=== PATIENT | female | born 2000 | race Caucasian/White ===

== ENCOUNTER 2024-02-11 18:20 | Emergency (ER) | payer SELFPAY ==
--- NOTE | 2024-02-11 20:09 | RAD REPORT ---
EXAM DESCRIPTION: RAD - Foot Left 3 View - 02/11/2024 7:50 pm CLINICAL HISTORY: toe injury COMPARISON: No comparisons FINDINGS/IMPRESSION: Transversely oriented fracture with slight lateral displacement at the third pr oximal phalangeal at the mid diaphysis. No intra-articular extension. No other fractures identified.
[2024-02-11] MEDS ORDERED: IBUPROFEN 400 MG TAB ONE (20:23)
[2024-02-11] MEDS ORDERED: HYDROCODONE/APAP 5/325 MG TAB ONE (20:23)
--- NOTE | 2024-02-11 20:27 | EDPHYS ---
Physician Documentation [facility] Name: Ej Moreno Age: 23 yrs Sex: Female : 2000 Arrival Date: 02/11/2024 Time: 18:20 Bed 9 Private MD: ED Physician Rashid Bender HPI: 02/10 19:15 This 23 yrs old Female presents to ER via Wheelchair with complaints of Foot Injury. cp 19:15 The patient presents with a deformity, an injury. The complaints affect the left middle cp toe. Context: resulted from kicking furniture, the patient can fully bear weight. Onset: The symptoms/episode began/occurred just prior to arrival. Associated signs and symptoms: Pertinent positives: pain, deformity, Pertinent negatives numbness. Treatment prior to arrival includes: no previous treatment. 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 - Infectious Disease History:: Denies. - Social history:: Smoking status: Patient denies any tobacco usage or history of. ROS: 19:20 MS/extremity: Positive for injury or acute deformity, pain, of the left middle toe, cp Negative for paresthesias, 19:20 All other systems are negative, cp Exam: 19:25 Constitutional: The patient appears in no acute distress, alert, awake, non-toxic, well cp developed, well nourished, uncomfortable, 19:25 Musculoskeletal/extremity: Extremities: grossly normal except: noted in the left middle cp toe: decreased ROM, deformity, pain, tenderness, Perfusion: the extremity is normally perfused throughout, the left middle toe Sensation intact. Vital Signs: 18:50 BP 128 / 74; Pulse 95; Resp 18 S; Temp 97.6(TE); Pulse Ox 98% on R/A; Weight 79.38 kg aa5 (R); Height 5 ft. 5 in. (R); 18:50 Body Mass Index 29.12 (79.38 kg, 165.1 cm) aa5 MDM: 18:53 Patient medically screened. cp 20:25 Data reviewed: vital signs, nurses notes, radiologic studies, plain films, and as a cp result, I will discharge patient. 20:25 Differential diagnosis: dislocation, open fracture, closed fracture, contusion. I cp considered the following discharge prescriptions or medication management in the emergency department Medications were administered in the Emergency Department. See MAR. Independent interpretation of the following test(s) in the Emergency Department X-Ray: My interpretation is images of left foot show displaced fracture of proximal phalanx left middle toe. Counseling: I had a detailed discussion with the patient and/or guardian regarding the historical points, exam findings, and any diagnostic results supporting the discharge/admit diagnosis, radiology results, the need for outpatient follow up, a orthopedic surgeon, to return to the emergency department if symptoms worsen or persist or if there are any questions or concerns that arise at home. Response to treatment: the patient's symptoms have markedly improved after treatment, and as a result, I will discharge patient. 02/10 19:08 Order name: XRAY Foot LEFT 3 View cp 02/10 19:08 Order name: Ice pack; Complete Time: 20:27 cp 02/10 20:25 Order name: Post-op shoe; Complete Time: 21:18 cp 02/10 20:25 Order name: Crutches; Complete Time: 21:18 cp Administered Medications: 20:27 Not Given (Patient Refused): hydrocodone-acetaminophen5 mg-325 mg 1 tabs PO once cm10 20:27 Drug: Ibuprofen PO 800 mg PO once Route: PO; cm10 21:18 Follow up: Response: No adverse reaction; Marked relief of symptoms; Pain is decreased pc2 Disposition Summary: 02/11/24 20:26 Discharge Ordered Notes: Location: Home cp Problem: new cp Symptoms: have improved cp Condition: Stable cp Diagnosis - Displaced fracture of proximal phalanx of left lesser toe(s), initial encounter for cp closed fracture Followup: cp - With: Cristhian Bolivar MD - When: 1 week - Reason: Recheck today's complaints Discharge Instructions: - Discharge Summary Sheet cp - Toe Fracture cp Forms: - Medication Reconciliation Form cp - Antibiotic Education cp - Prescription Opioid Use cp - Patient Portal Instructions cp - Leadership Thank You Letter cp Prescriptions: - Anaprox DS 550 mg Oral Tablet - take 1 tablet ORAL route every 12 hours As needed; 20 tablet; Refills: 0, cp Product Selection Permitted - Tramadol 50 mg Oral Tablet - take 1 tablet ORAL route every 8 hours as needed; 12 tablet; Refills: 0, cp Product Selection Permitted Signatures: Dispatcher [employer] Magalys Wilson RN RN aa5 Rashid Luque PA PA cp Martinez, Clarissa, RN RN cm10 Brigette Evans RN pc2 Corrections: (The following items were deleted from the chart) 18:50 18:50 Allergies: No Known Allergies; tiarra5 aa5
--- NOTE | 2024-02-11 20:27 | ER ---
Nurse's Notes [facility] Name: Ej Moreno Age: 23 yrs Sex: Female : 2000 Arrival Date: 02/11/2024 Time: 18:20 Bed 9 Private MD: Diagnosis: Displaced fracture of proximal phalanx of left lesser toe(s), initial encounter for closed fracture Presentation: 02/10 18:50 Chief complaint: Patient states: "I stubbed my toe on a piano". pt c/o pain to left aa5 toes. Coronavirus screen: At this time, the client does not indicate any symptoms associated with coronavirus-19. Ebola Screen: Patient denies travel to an Ebola-affected area in the 21 days before illness onset. Initial Sepsis Screen: Does the patient meet any 2 criteria? No. Patient's initial sepsis screen is negative. Does the patient have a suspected source of infection? No. Patient's initial sepsis screen is negative. Risk Assessment: Do you want to hurt yourself or someone else? Patient reports no desire to harm self or others. Onset of symptoms was February 11, 2024. 18:50 Acuity: RAMA 4 aa5 18:50 Method Of Arrival: Wheelchair aa5 Triage Assessment: 20:10 General: Appears in no apparent distress. comfortable, well groomed, well developed, pc2 Behavior is calm, cooperative, appropriate for age. Pain: Denies pain. EENT: No signs and/or symptoms were reported regarding the EENT system. Neuro: Level of Consciousness is awake, alert, obeys commands, Oriented to person, place, time, situation. Cardiovascular: No deficits noted. Respiratory: No deficits noted. Airway is patent Respiratory effort is even, unlabored, Respiratory pattern is regular, symmetrical. GI: No signs and/or symptoms were reported involving the gastrointestinal system. : No signs and/or symptoms were reported regarding the genitourinary system. Derm: No signs and/or symptoms reported regarding the dermatologic system. Musculoskeletal: Reports she stubbed toe against piano. Injury Description: Crush injury. 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 - Infectious Disease History:: Denies. - Social history:: Smoking status: Patient denies any tobacco usage or history of. Screenin:19 [facility] ED Fall Risk Assessment (Adult) History of falling in the last 3 months, pc2 including since admission No falls in past 3 months (0 pts) Confusion or Disorientation No (0 pts) Intoxicated or Sedated No (0 pts) Impaired Gait Yes (1 pt) Mobility Assist Device Used No (0 pt) Altered Elimination No (0 pt) Score/Fall Risk Level 0 - 2 = Low Risk Oriented to surroundings, Maintained a safe environment. Abuse screen: Denies threats or abuse. Denies injuries from another. Nutritional screening: No deficits noted. Tuberculosis screening: No symptoms or risk factors identified. Assessment: 21:22 Reassessment: see triage assessment. pc2 Vital Signs: 18:50 BP 128 / 74; Pulse 95; Resp 18 S; Temp 97.6(TE); Pulse Ox 98% on R/A; Weight 79.38 kg aa5 (R); Height 5 ft. 5 in. (R); 18:50 Body Mass Index 29.12 (79.38 kg, 165.1 cm) aa5 ED Course: 18:22 Patient arrived in ED. mg5 18:49 Arm band placed on. aa5 18:51 Triage completed. aa5 18:52 Rashid Luque PA is PHCP. cp 18:52 Rashid Bender MD is Attending Physician. cp 19:52 XRAY Foot LEFT 3 View In Process Unspecified. EDMS 20:25 Cristhian Bolivar MD is Referral Physician. cp 21:19 No provider procedures requiring assistance completed. Crutch training done. Ortho shoe pc2 applied to left foot. 21:20 Patient has correct armband on for positive identification. Side rails up X 1. Provided pc2 Education on: f/u and medications. 21:23 Patient did not have IV access during this emergency room visit. pc2 Administered Medications: 20:27 Not Given (Patient Refused): hydrocodone-acetaminophen5 mg-325 mg 1 tabs PO once cm10 20:27 Drug: Ibuprofen PO 800 mg PO once Route: PO; cm10 21:18 Follow up: Response: No adverse reaction; Marked relief of symptoms; Pain is decreased pc2 Medication: 21:20 VIS not applicable for this client. pc2 Outcome: 20:26 Discharge ordered by . cp 21:22 Discharged to home ambulatory, with crutches, with family, pc2 21:22 Condition: stable 21:22 Discharge instructions given to patient, Instructed on discharge instructions, follow up and referral plans. crutch walking, Demonstrated understanding of instructions, follow-up care, medications, crutch walking, Prescriptions given X 2, 21:24 Patient left the ED. pc2 Signatures: Dispatcher [employer] EDMS Magalys Payne, RN RN aa5 Rashid Luque PA PA Drea Weaver, RN RN Debby Gong mg5 Brigette Evans, RN RN pc2 Corrections: (The following items were deleted from the chart) 18:50 18:50 Allergies: No Known Allergies; aa5 aa5
[2024-02-11 21:28] VITALS: BP 128/74; TEMP 97.6; O2SAT 98
== END 2024-02-11 21:24 | disposition home or self-care (01) ==
LOC: ER 18:20
DX: S92.512A Displaced fracture of proximal phalanx of left lesser toe(s), initial encounter for closed fracture (principal); W22.03XA Walked into furniture, initial encounter
CPT/HCPCS: 99283